=== PATIENT | male | born 1935 | race Caucasian/White ===

== ENCOUNTER → 2016-11-25 | Outpatient (CLI) | payer OTHER ==
[~2016-11-25] MED LIST: ASPIRIN EC81 M1 PO; ASPIRIN PO; ATENOLOL PO; ATENOLOL25 MG PO; CLOPIDOGREL BIS75 MG PO; COUMADIN PO; HYTRIN PO; HYTRIN10 MG PO; IRON PO; KEFLEX PO; MULTI-VIT/MIN P1 TAB PO; MULTIVITAMINS1 EAC2 PO; NAMZARIC 7 MG-1 EACH PO; NORCO 5/325 TAB1 TAB PO; OCUVITE TABLET1 TAB PO; PLAVIX PO; PRESERVISION1 EA DOB; PRILOSEC PO; PROTONIX PO; SIMVASTATIN10 MG PO; ZOCOR PO
== END | disposition home or self-care (01) ==
LOC: CSSDAY 06:32
DX: N39.0 Urinary tract infection, site not specified (principal); Z79.2 Long term (current) use of antibiotics
CPT/HCPCS: 96365; J1580